=== PATIENT | male | born 1955 | race Caucasian/White ===

== ENCOUNTER 2017-04-29 21:49 | Emergency (ER) | payer BC ==
[~2017-04-29] VITALS: Ht 182.9 cm; Wt 92.1 kg
--- NOTE | ~2017-04-29 | CT4 ---
[facility] A Service of [facility] & [facility] RADIOLOGY TEXT RESULTS PATIENT: ERLIN MATOS II LOCATION: SED : 59 UNIT #: [id number] AGE: [address]: Cosme Duke MD SEX: M ORDER DR: [id number] [place] [id number] E MR#: [id number] Acc #: [id number] NAME: ERLIN MATOS : 1955 SEX: M STUDY DATE/TIME: 04/29/2017 22:43 UNIT: SED ROOM: STUDY DESCRIPTION: CT Abd and Pelv Wo Cont Attending Physician: Cosme Duke M.D. Ordering Physician: Kodak Duke M.D. Primary Care Physician: Frank Hilliard M.D. MEDICAL IMAGING REPORT This report is preliminary unless electronic signature is present. EXAM CT abdomen and pelvis, noncontrast, kidney stone protocol, 04/29/2017. HISTORY 62-year-old male in the ED complaining of right flank pain and nausea beginning about 2 hours prior to arrival. He notes a past history of kidney stones. TECHNIQUE CT examination of the abdomen and pelvis performed without oral or IV contrast using kidney stone protocol. This CT exam was performed with one or more of the following radiation dose reduction techniques: automatic exposure control, adjustment of mA and/or kV according to patient size, and iterative reconstruction. FINDINGS ABDOMEN: The exam shows evidence of mild acute diverticulitis involving the upper sigmoid colon in the left upper pelvis where there is mild colon wall thickening and mild surrounding pericolonic inflammatory soft tissue stranding. Pgem-kv-vhwsauny diverticulosis throughout the sigmoid and lower descending colon. No evidence of abscess, bowel perforation or bowel obstruction. Similar sigmoid segment was inflamed on the previous study of 04/04/2016, although the current findings are slightly more severe. Remaining segments of small bowel and colon are normal in caliber and appearance, as imaged. Surgically absent appendix. 3 mm nonobstructing calculus in the lower pole left kidney, unchanged. No evidence of urinary obstruction. Liver, pancreas and spleen are within normal limits. No bile duct dilatation. Normal-caliber abdominal aorta. PELVIS FINDINGS: Urinary bladder, prostate and rectum are within normal STS. [facility] A Service of [facility] & [facility] RADIOLOGY TEXT RESULTS PATIENT: ERLIN MATOS II LOCATION: SED : 59 UNIT #: [id number] AGE: [address]: Cosme Duke MD SEX: M ORDER DR: [email or web address]. Metal artifact from left hip arthroplasty. Limited lung base images show no active disease in the lower chest. IMPRESSION 1. Mild acute diverticulitis involving the upper sigmoid colon in the left upper pelvis. This is similar when compared with the previous study of 04/04/2016, although inflammatory changes appears slightly greater today. No evidence of abscess, bowel perforation or bowel obstruction. 2. Mild to moderate diverticulosis throughout the sigmoid and descending colon. Surgically absent appendix. 3. 3 mm nonobstructing calculus lower pole left kidney. Dictated by... Placido Hernandez M.D. THIS IS AN ELECTRONICALLY VERIFIED REPORT Placido Hernandez M.D. at 04/30/2017 5:59 AM SELWYN/amber TD: 04/29/2017 23:55 JOB #: [id number] MEDICAL IMAGING REPORT Page 1 of 1
[~2017-04-29 21:49] MED LIST: ALLEGRA-D1 TAB.SR1 PO; CIPRO PO; COLAZAL750 MG; COLAZAL750 MG PO; FLAGYL PO; FLOMAX0.4 MG; FOLIC ACID PO; LIPITOR PO; LISINOPRIL PO; NEXIUM PO; PERCOCET10 PO; PERCOCET5/325 PO; PHENERGAN PO; VICODIN 5/500 T1 TAB PO
[2017-04-29 22:43] LABS: BASOPHIL# 0.1 X10e3 (0-0.3); BASOPHIL% 0.7 % (0-2.5); DIFF IND NO; EOSINOPHIL# 0.2 X10e3 (0-0.7); EOSINOPHIL% 1.7 % (0.0-7.0); HEMATOCRIT 39.5 % (38.0-50.0); HEMOGLOBIN 13.5 gm/dL (13.0-16.0); LYMPHOCYTE% 20.9 % (17.0-45.0); MEAN CELL VOLUME 88.2 FL (83-96); MEAN CORPUSCULAR HEMOGLOBIN 30.2 PG (28-34); MEAN CORPUSCULAR HGB CONC 34.3 g/dL (30-36); MEAN PLATELET VOLUME 9.5 FL (6.5-11.5); MONOCYTE# 0.7 X10e3 (0-1.0); MONOCYTE% 7.1 % (3.0-12.0); NEUTROPHIL# 6.6 X10e3 (1.5-7.1); NEUTROPHIL% 69.6 % (40-75); PLATELET COUNT 246 X10e3 (140-420); RED BLOOD COUNT 4.48 X10e (3.90-5.60); RED CELL DISTRIBUTION WIDTH 12.6 % (11.0-15.5); WHITE BLOOD COUNT 9.5 X10e3 (4.0-10.5)
[2017-04-29 23:01] LABS: ALBUMIN SERUM 4.4 g/dL (3.5-5.0); BILIRUBIN, DIRECT 0.1 mg/dL (0.0-0.2); BILIRUBIN,INDIRECT 0.8 mg/dL (0.0-0.9); BILIRUBIN,TOTAL 0.9 mg/dL (0.2-2.0); CALCIUM SERUM 9.2 mg/dL (8.4-10.2); GLOM FILT RATE Estimated 81.5 mL/min (>60); POTASSIUM 3.3 mmol/L (3.5-5.1); PROTEIN TOTAL SERUM 7.8 g/dL (6.0-8.3)
[2017-04-30 00:09] LABS: URINE SOURCE CLEAN CATCH
[2017-04-30 00:15] LABS: URINE APPEARANCE CLEAR; URINE BLOOD 3+ (NEG); URINE COLOR DK YELLOW; URINE GLUCOSE NEG (NORM); URINE LEUKOCYTE ESTERASE NEG (NEG); URINE NITRATE NEG (NEG); URINE PROTEIN 1+ (NEG); URINE SPECIFIC GRAVITY 1.015 (1.003-1.035)
[2017-04-30 00:18] LABS: MICRO INDICATED? YES; URINE BILIRUBIN NEG (NEG); URINE KETONE 3+ (NEG)
[2017-04-30 00:26] LABS: URINE BACTERIA NEG (NEG); URINE RBC 200-300 /[HPF] (0-2)
[2017-04-30 00:27] LABS: URINE MUCUS PRESENT; URINE SQUAMOUS EPITHELIAL CELL OCCAS /[HPF]; URINE TRANSITIONAL EPI CELLS FEW /[HPF]
== END 2017-04-30 01:34 | disposition home or self-care (01) ==
LOC: SED 21:49
PROVIDERS: Emergency Medicine
DX: K57.32 Diverticulitis of large intestine without perforation or abscess without bleeding (principal); Z87.442 Personal history of urinary calculi; F17.210 Nicotine dependence, cigarettes, uncomplicated; Z79.899 Other long term (current) drug therapy
CPT/HCPCS: 36415; 74176; 80048; 80076; 81003; 83690; 85025; 96361; 96374; 96375; 99284; J1170; J2405